=== PATIENT | female | born 1985 | race Caucasian/White ===

== ENCOUNTER 2019-06-03 23:11 | Emergency (ER) | payer BC ==
[~2019-06-03] VITALS: Ht 162.6 cm; Wt 56.7 kg
[2019-06-03] MEDS ORDERED: MECLIZINE HCL 12.5 MG TABLET ONE (23:42)
[2019-06-03] MEDS ORDERED: ACETAMINOPHEN ES 500 MG TABLET ONE (23:42)
[2019-06-04] MEDS ORDERED: KETOROLAC TROMETHAMINE INJ 60 MG/2 ML VIAL IM ONE
[2019-06-04] MEDS ORDERED: ACETAMINOPHEN ES 500 MG TABLET PO ONE
[2019-06-04] MEDS ORDERED: MECLIZINE HCL 12.5 MG TABLET PO ONE
[2019-06-04] MEDS ORDERED: KETOROLAC TROMETHAMINE 15 MG/ML VIAL ONE (00:03)
[2019-06-04 01:10] VITALS: BP 112/85
--- NOTE | 2019-06-04 01:12 | NUR ---
Patient discharged to home in stable condition. Written and verbal after care instructions given. Patient verbalizes understanding of instruction. VSS. Patient left accompanied by her BF in stable condition. denies headache at this time. instruction provided
== END 2019-06-04 01:12 | disposition home or self-care (01) ==
LOC: ER 23:15
DX: R51 Headache (principal); F10.10 Alcohol abuse, uncomplicated; Y90.9 Presence of alcohol in blood, level not specified; Z41.1 Encounter for cosmetic surgery; Z98.890 Other specified postprocedural states
CPT/HCPCS: 70450; 96372; 99284; J1885; J8597